=== PATIENT | male | born 1990 | race Caucasian/White ===

== ENCOUNTER 2019-09-15 13:26 | Emergency (ER) | payer OTHER ==
[~2019-09-15] VITALS: Ht 177.8 cm; Wt 77.8 kg
[2019-09-15] MEDS ORDERED: ONDANSETRON 2MG/ML, 2ML ONE (14:11)
[2019-09-15] MEDS ORDERED: HYDROmorphone 1 MG/ML, 1ML INJ ONE (14:11)
[2019-09-15] MEDS ORDERED: PROPOFOL 10 MG/ML, 20ML ONE ×2 (14:29)
[2019-09-15] MEDS ORDERED: HYDROmorphone 2 MG/ML, 1ML IVPush PRN (14:30)
[2019-09-15] MEDS ORDERED: ONDANSETRON 2MG/ML, 2ML IVPush ONE (14:30)
[2019-09-15] MEDS ORDERED: SODIUM CHLORIDE FLUSH 10ML SYR IVF ONE (14:30)
[2019-09-15 14:48] VITALS: BP 104/65
--- NOTE | 2019-09-15 14:53 | NUR ---
PROCEDUARL SEDATION PEFORMED. DR ALCANTAR RESET PT LEFT SHOULDER. THIS RN IS IN ROOM MONITORING PT IN ROOM. PT IS TOELRATING WELL.
[2019-09-15] MEDS ORDERED: PROPOFOL 10 MG/ML, 20ML IVPush ONE (15:00)
--- NOTE | 2019-09-15 15:12 | NUR ---
PT RECOVERING WELL FROM SEDATION PROCEDURE. AOX4. 99% RM AIR. STATES HE HAS PAIN RELIEF 08/11
== END 2019-09-15 15:52 | disposition home or self-care (01) ==
LOC: EDSEX 13:26 → ED 15:18
DX: S43.005A Unspecified dislocation of left shoulder joint, initial encounter (principal); W19.XXXA Unspecified fall, initial encounter; Y93.89 Activity, other specified; Y92.830 Public park as the place of occurrence of the external cause; Y99.8 Other external cause status
CPT/HCPCS: 23650; 73030; 96374; 96375; 99152; 99285; J1170; J2405; J2704